=== PATIENT | female | born 1970 | race Hispanic/Latino ===

== ENCOUNTER → 2023-11-16 07:29 | Outpatient (REF) | payer OTHER, SELFPAY ==
[2023-11-16 08:50] LABS: Glycohemoglobin (HgbA1c) 6.2 % (4.0-5.6)
[2023-11-16 09:01] LABS: ALT (SGPT) 37 U/L (0-35); AST (SGOT) 35 U/L (14-36); Albumin 4.3 g/dl (3.5-5.0); Alkaline Phosphatase 91 U/L (38-126); Blood Urea Nitrogen 16 mg/dl (7-17); Calcium 9.7 mg/dl (8.4-10.2); Carbon Dioxide 27 mmol/L (22-30); Chloride 106 mmol/L (98-107); Glucose 107 mg/dl (70-99); HDL Cholesterol 60 mg/dl; LDL Cholesterol, Calculated 141 mg/dl; Potassium 4.5 mmol/L (3.5-5.1); Sodium 139 mmol/L (135-145); Total Bilirubin 0.5 mg/dl (0.2-1.3); Total Cholesterol 235 mg/dl (50-199); Total Protein 7.3 g/dl (6.3-8.2); Triglyceride 172 mg/dl (10-149); Very Low Density Lipoprotein 34 mg/dl (0-30); eGFR > 60.00
[2023-11-16 09:16] LABS: Vitamin D, 25-OH*** 33.1 ng/mL (30-80)
== END ==
LOC: CLINIC 07:29
PROVIDERS: ATTENDING PHYSICIAN Nurse Practitioner Adult Health
DX: R73.03 Prediabetes (principal); E78.00 Pure hypercholesterolemia, unspecified; E55.9 Vitamin D deficiency, unspecified
CPT/HCPCS: 36415; 80053; 80061; 82306; 83036

== ENCOUNTER 2024-01-01 16:16 | Emergency (ER) | payer SELFPAY ==
[2024-01-01 16:30] VITALS: BP 106/73
[2024-01-01 16:54] LABS: % Basophils 0.3 % (0-2); % Eosinophils 3.2 % (0-6); % Immature Granulocytes 0.6 % (0-0.5); % Lymphocytes 27.7 % (20.5-51.1); % Monocytes 6.7 % (1.7-9.3); % Neutrophils 61.5 % (42.2-75.2); Absolute Eosinophils 0.2 10^3/uL (0-0.7); Absolute Lymphocytes 1.9 10^3/uL (1.2-3.4); Absolute Monocytes 0.5 10^3/uL (0.1-0.6); Absolute Neutrophils 4.2 10^3/uL (1.4-6.5); Hematocrit 36.3 % (37.0-47.0); Hemoglobin 12.6 g/dL (12.0-16.0); Mean Corp Hgb Conc. 34.7 g/dL (33.0-37.0); Mean Corpuscular Hgb 30.1 pg (27.0-31.0); Mean Corpuscular Volume 86.6 fL (81.0-99.0); Mean Platelet Volume 10.4 fL (7.4-10.4); Nucleated Red Blood Cells % 0 %; Platelet Count 282 10^3/uL (130-400); Red Blood Cell Count 4.19 10^6/uL (4.20-5.40); White Blood Cell Count 6.9 10^3/uL (4.8-10.8)
[2024-01-01 17:58] LABS: ALT (SGPT) 37 U/L (0-35); AST (SGOT) 31 U/L (14-36); Albumin 4.1 g/dl (3.5-5.0); Alkaline Phosphatase 111 U/L (38-126); Blood Urea Nitrogen 28 mg/dl (7-17); Calcium 9.6 mg/dl (8.4-10.2); Carbon Dioxide 26 mmol/L (22-30); Chloride 106 mmol/L (98-107); Glucose 131 mg/dl (70-99); Potassium 4.2 mmol/L (3.5-5.1); Sodium 141 mmol/L (135-145); Total Bilirubin 0.4 mg/dl (0.2-1.3); Total Protein 7.1 g/dl (6.3-8.2); eGFR > 60.00
--- NOTE | 2024-01-01 19:13 | ED.GENMED ---
History of Present Illness
General
Chief Complaint: Breast Problem
Time Seen by Provider: 01/01/24 19:12
Travel History
Have you had any contact with someone who has COVID-19?: No
Do you have any symptoms of coronavirus? Fever > 100 degrees, chills, cough, shortness of breath, sore throat, loss of taste or smell, muscle aches, or headache?: No
History of Present Illness
History of Present Illness:
HPI: The patient presents with right-sided breast pain. This is associated with erythema. It has been ongoing for 8 days. She states that she has had an infection of her breast 20+ years ago that was managed operatively. She has had no fevers.
She uses the aunts over in clinic. She apparently lives in [place].
EXAM:
GENERAL: Well appearing in no distress
HEENT: Moist oral mucosa
BREAST: With Kenyatta KAUR electromechanical equipment tester in the room, left breast unremarkable, there is an area of cellulitic changes adjacent to but not involving the nipple primarily involving the medial aspect of the left breast, there is some indurated tissue as well
but no definite abscess.
NEUROLOGIC: Excellent strength all extremities, no coordination deficits
PSYCHIATRIC: Appropriate mental status, normal insight and judgement
EXTREMITIES: Nontender, no edema, moves all extremities equally
SKIN: As above
TIME OF INITIAL ENCOUNTER: 7:30 PM
NUMBER AND COMPLEXITY OF PROBLEMS ADDRESSED AT THE ENCOUNTER
� Chronic conditions affecting care: The patient has had mastitis in the past.
� Acute Exacerbation and/or Progression of Chronic Illness: This is an acute problem
� Differential Diagnosis includes: Cellulitis, breast mass, mastitis
AMOUNT AND/OR COMPLEXITY OF DATA TO BE REVIEWED AND ANALYZED
� I performed an independent evaluation of and my interpretation is:
EKG:
CT:
X-rays:
Laboratory Studies: White count is 6.9, hemoglobin is 12.6, chemistries are relatively unremarkable however the BUN to creatinine ratio was elevated.
Other:
� Review of other/old records: I reviewed records, the patient was here in 2020 with COVID-19
� Clinical information was obtained by an independent historian: None needed but we did use [employer]
� Prescriptions/Medications Considered but not given:
� Further testing considered but not performed:
RISK OF COMPLICATIONS AND/OR MORBIDITY OR MORTALITY OF PATIENT MANAGEMENT
� Social determinants of health affecting care: Lives at home in [place] but uses the [facility] in clinic locally
� Discussion with other providers:
� Escalation of care including admission/observation vs risk of discharge considered: The patient has evidence of cellulitis. Will start antibiotics. Her vital signs are not consistent with sepsis. Will start doxycycline and
she is to follow-up with the clinic.
Past History
Past History
ED Past Medical History: None
ED Past Surgical History: None
Social History
Tobacco: Non-smoker
Phy Exam
Physical Exam
Physical Exam:
See HPI
Course
Orders/Labs/Results
Orders:
Orders
01/01/24 16:45
CMP [Comprehensive Metabolic Panel] Urgent
Complete Blood Count/With Diff Urgent
Blood Culture Routine
FLORY Source: Blood/Venous
Specimen Description:
Date Specimen was Collected: 01/01/24
Time Specimen was Collected: 16:42
01/01/24 19:50
Doxycycline [Vibramycin] 100 mg PO NOW STA
Abnormal Lab Results
01/01/24
16:45
RBC 4.19 L 10^6/uL
(4.20-5.40)
Hct 36.3 L %
(37.0-47.0)
Immature Gran % 0.6 H %
(0-0.5)
BUN 28 H mg/dl
(7-17)
Glucose 131 H mg/dl
(70-99)
ALT 37 H U/L
(0-35)
01/01/24 16:45
01/01/24 16:45
Vital Signs
Initial and Last Documented VS:
Initial Vital Signs
Temp Pulse Resp BP Pulse Ox
98.0 F 73 16 106/73 98
01/01/24 16:30 01/01/24 16:30 01/01/24 16:30 01/01/24 16:30 01/01/24 16:30
Last Documented Vital Signs
Temp Pulse Resp BP Pulse Ox
98.0 F 73 16 106/73 98
01/01/24 16:30 01/01/24 16:30 01/01/24 16:30 01/01/24 16:30 01/01/24 16:30
*Critical Care Note
Total Time (30-74mins, 75-104mins- exclusive of procedures): Not Applicable
ED Attending Note
-
Portions of this chart may have been created with voice recognition software.� Occasional wrong word or��sound alike� substitutions may have occurred due to the inherent limitations of voice recognition software.
Discharge Plan
Departure
Patient Disposition: Home (Routine Discharge)
Date of Disposition: 01/01/24
Time of Disposition: 19:51
Patient with high blood pressure during this ER visit?: Yes
Discharge Problem:
Cellulitis of right breast
Prescriptions:
New
doxycycline monohydrate 100 mg capsule
100 mg PO BID Qty: 20 0RF
No Action
diphenhydramine HCl [Sleep Aid (diphenhydramine)] 25 MG tablet
25 mg PO HS PRN (Reason: insomnia)
ascorbic acid (vitamin C) [Vitamin C] 500 MG tablet
1,000 mg PO BID Qty: 56 0RF
Rx Instructions:
Take 1,000 mg twice a day for 14 days
albuterol sulfate 1 PUFF HFA aerosol inhaler
2 puff inhalation R Q4HPRN PRN (Reason: shortness of breath) Qty: 1 0RF
zinc sulfate 220 MG capsule
220 mg PO DAILY Qty: 14 0RF
Rx Instructions:
Take 220 mg daily for 14 days
cholecalciferol (vitamin D3) 1,000 UNITS tablet
2,000 units PO DAILY Qty: 28 0RF
Rx Instructions:
Take 2,000 units daily for 14 days
Referrals:
[facility]Outside] - Follow up in 2-3 days
NONE,* [Family Provider] -
Activity Restrictions/Additional Instructions:
Follow-up with the clinic. Return here if worse. Your white blood cell count is normal. Your temperature is normal. Other basic labs are unremarkable.
Interventions
Interventions:
*Risk Screen - Suicide Last Done: 01/01/24 18:00
*General Assessment Last Done: 01/01/24 18:00
*Neglect/Abuse Screening Last Done: 01/01/24 18:00
ED- Fall Risk Assessment Last Done: 01/01/24 18:00
*ED COVID-19 Vaccine History Last Done: 01/01/24 19:32
ED-Skin Assessment Last Done: 01/01/24 18:00
Discharge Date and Time
Print Language: SWEDISH
[2024-01-01] MEDS: VIBRAMYCIN 100 MG PO (20:01)
== END 2024-01-01 20:13 | disposition home or self-care (01) ==
LOC: EMR 16:16
PROVIDERS: Emergency Medicine; EMERGENCY PHYSICIAN Emergency Medicine
DX: N61.0 Mastitis without abscess (principal); R03.0 Elevated blood-pressure reading, without diagnosis of hypertension
CPT/HCPCS: 99283; 80053; 85025; 87040

== ENCOUNTER → 2024-03-03 09:22 | Outpatient (REF) | payer SELFPAY | LOC: WDC 09:22 | PROVIDERS: ATTENDING PHYSICIAN Nurse Practitioner Adult Health | DX: N64.4 Mastodynia (principal); N63.21 Unspecified lump in the left breast, upper outer quadrant | CPT/HCPCS: 76642; 77062; 77066 ==

== ENCOUNTER → 2024-05-22 09:10 | Outpatient (REF) | payer OTHER, SELFPAY ==
[2024-05-22 10:46] LABS: Glycohemoglobin (HgbA1c) 5.9 % (4.0-5.6)
[2024-05-22 10:52] LABS: ALT (SGPT) 49 U/L (0-35); AST (SGOT) 35 U/L (14-36); Albumin 4.4 g/dl (3.5-5.0); Alkaline Phosphatase 100 U/L (38-126); Blood Urea Nitrogen 14 mg/dl (7-17); Calcium 9.6 mg/dl (8.4-10.2); Carbon Dioxide 26 mmol/L (22-30); Chloride 105 mmol/L (98-107); Glucose 101 mg/dl (70-99); HDL Cholesterol 57 mg/dl; LDL Cholesterol, Calculated 151 mg/dl; Potassium 4.3 mmol/L (3.5-5.1); Sodium 144 mmol/L (135-145); Total Bilirubin 0.4 mg/dl (0.2-1.3); Total Cholesterol 243 mg/dl (50-199); Total Protein 7.4 g/dl (6.3-8.2); Triglyceride 177 mg/dl (10-149); Very Low Density Lipoprotein 35 mg/dl (0-30); eGFR > 60.00
== END ==
LOC: REG 09:10
PROVIDERS: ATTENDING PHYSICIAN Nurse Practitioner Adult Health
DX: R73.03 Prediabetes (principal); E78.00 Pure hypercholesterolemia, unspecified
CPT/HCPCS: 36415; 80053; 80061; 83036

== ENCOUNTER → 2024-12-13 07:06 | Outpatient (REF) | payer OTHER, SELFPAY ==
[2024-12-13 10:12] LABS: ALT (SGPT) 39 U/L (0-35); AST (SGOT) 31 U/L (14-36); Albumin 4.5 g/dl (3.5-5.0); Alkaline Phosphatase 96 U/L (38-126); Blood Urea Nitrogen 15 mg/dl (7-17); Calcium 9.3 mg/dl (8.4-10.2); Carbon Dioxide 25 mmol/L (22-30); Chloride 109 mmol/L (98-107); Glucose 107 mg/dl (70-99); Potassium 4.1 mmol/L (3.5-5.1); Sodium 143 mmol/L (135-145); Total Bilirubin 0.7 mg/dl (0.2-1.3); Total Protein 7.2 g/dl (6.3-8.2); eGFR > 60.00
[2024-12-14 10:52] LABS: Glycohemoglobin (HgbA1c) 5.9 % (4.0-5.6)
== END ==
LOC: CLINIC 07:06
PROVIDERS: ATTENDING PHYSICIAN Nurse Practitioner Adult Health
DX: R73.03 Prediabetes (principal); R74.8 Abnormal levels of other serum enzymes
CPT/HCPCS: 36415; 80053; 83036

== ENCOUNTER → 2025-06-26 07:20 | Outpatient (REF) | payer OTHER, SELFPAY ==
[2025-06-26 08:33] LABS: Hematocrit 40.8 % (37.0-47.0); Hemoglobin 13.8 g/dL (12.0-16.0); Mean Corp Hgb Conc. 33.8 g/dL (33.0-37.0); Mean Corpuscular Volume 86.6 fL (81.0-99.0); Platelet Count 251 10^3/uL (130-400); Red Cell Dist. Width 12.9 % (11.5-14.5)
[2025-06-26 09:12] LABS: ALT (SGPT) 36 U/L (0-35); AST (SGOT) 28 U/L (14-36); Albumin 4.5 g/dl (3.5-5.0); Alkaline Phosphatase 90 U/L (38-126); Blood Urea Nitrogen 14 mg/dl (7-17); Calcium 9.5 mg/dl (8.4-10.2); Carbon Dioxide 29 mmol/L (22-30); Chloride 105 mmol/L (98-107); Glucose 105 mg/dl (70-99); HDL Cholesterol 55 mg/dl; LDL Cholesterol, Calculated 164 mg/dl; Potassium 4.4 mmol/L (3.5-5.1); Sodium 138 mmol/L (135-145); Total Protein 7.6 g/dl (6.3-8.2); Very Low Density Lipoprotein 22 mg/dl (0-30); eGFR > 60.00
[2025-06-26 09:52] LABS: Glycohemoglobin (HgbA1c) 6.0 % (4.0-5.9)
== END ==
LOC: CLINIC 07:20
PROVIDERS: ATTENDING PHYSICIAN Nurse Practitioner Adult Health
DX: Z12.11 Encounter for screening for malignant neoplasm of colon (principal); R73.03 Prediabetes; R74.8 Abnormal levels of other serum enzymes; E78.00 Pure hypercholesterolemia, unspecified
CPT/HCPCS: 36415; 80053; 80061; 83036; 85027